=== PATIENT | male | born 1995 | race Two or more races ===

== ENCOUNTER 2016-08-01 11:23 | Emergency (ER) | payer MEDICAID, OTHER ==
[~2016-08-01] VITALS: Ht 177.8 cm; Wt 84.6 kg
[2016-08-01 11:27] VITALS: BP 142/81
== END 2016-08-01 13:34 | disposition home or self-care (01) ==
LOC: ED 13:15
DX: S93.401A Sprain of unspecified ligament of right ankle, initial encounter (principal); Y93.39 Activity, other involving climbing, rappelling and jumping off; Y93.02 Activity, running; Y92.410 Unspecified street and highway as the place of occurrence of the external cause; Y99.9 Unspecified external cause status
CPT/HCPCS: 99284